=== PATIENT | female | born 1945 | race Caucasian/White ===

== ENCOUNTER → 2017-05-07 | Outpatient (CLI) | payer MEDICARE, OTHER ==
--- NOTE | 2017-05-07 11:39 | RAD ---
EXAM: MAMMO WANDA SCREENING BILATERAL HISTORY: Routine Screening. COMPARISON: 09/19/2015 Standard mammographic views are obtained of the bilateral breasts. Additionally three-dimensional tomographic images obtained. This study was interpreted with the benefit of Computerized Aided Detection (CAD). FINDINGS: The breast parenchyma Is heterogenously dense, which could reduce sensitivity of mammography. Breast parenchyma level III.. There is no definite new suspicious spiculated mass or worrisome new cluster of microcalcifications. There are some scattered calcifications again seen. IMPRESSION: No definite new suspicious mass. BI-RADS CATEGORY: 2 BENIGN FINDING RECOMMENDED FOLLOW-UP: 12M 12 MONTH FOLLOW-UP PQRS compliance statement: Patient information was entered into a reminder system with a target due date for the next mammogram. Mammography is a sensitive method for finding small breast cancers, but it does not detect them all and is not a substitute for careful clinical examination. A negative mammogram does not negate a clinically suspicious finding and should not result in delay in biopsying a clinically suspicious abnormality. "Our facility is accredited by the [employer] Mammography Program."
== END | disposition home or self-care (01) ==
LOC: MAMMO 08:27
PROVIDERS: ATTEND Family Medicine
DX: Z12.31 Encounter for screening mammogram for malignant neoplasm of breast (principal)
CPT/HCPCS: 77063; G0202; 77067

== ENCOUNTER → 2018-07-15 | Outpatient (CLI) | payer MEDICARE, OTHER ==
--- NOTE | 2018-07-16 08:40 | RAD ---
DATE: 07/15/2018 EXAM: MAMMO WANDA SCREENING BILATERAL HISTORY: Screening COMPARISON: 05/07/2017, 12 1 213 screening mammographic exams This study was interpreted with the benefit of Computerized Aided Detection (CAD ). Breast Density: SCATTERED The breast parenchyma shows scattered fibroglandular densities. Breast parenchyma level B. FINDINGS: A few punctate benign calcifications are present but are probably normal at the right axillary region. No dominant mass or distortion. Parenchymal distribution is stable. IMPRESSION: BI-RADS CATEGORY: 2 BENIGN FINDING(S) RECOMMENDED FOLLOW-UP: PQRS compliance statement: Patient information was entered into a reminder system with a target due date 1 year for the next mammogram. Mammography is a sensitive method for finding small breast cancers, but it does not detect them all and is not a substitute for careful clinical examination. A negative mammogram does not negate a clinically suspicious finding and should not result in delay in biopsying a clinically suspicious abnormality. "Our facility is accredited by the [employer] Mammography Program." SCOTTIED
== END | disposition home or self-care (01) ==
LOC: MAMMO 10:15
PROVIDERS: ATTEND Family Medicine
DX: Z12.31 Encounter for screening mammogram for malignant neoplasm of breast (principal)
CPT/HCPCS: 77063; 77067

== ENCOUNTER 2018-11-22 03:43 | Emergency (ER) | payer MEDICARE, OTHER ==
[~2018-11-22] VITALS: Ht 165.1 cm; Wt 60.7 kg
--- NOTE | 2018-11-22 03:45 | ED.ADGEN ---
Past History Past Medical History: A-Fib, Other Past Medical History Head Injury- suspect small focus Rt parietal parafalcine hemorrhage- subdural or subarachnoid. Adult General Chief Complaint Chief Complaint ".. I had a couple glasses wine at the tasting.. ..I get dehydrated easily...I have Afib.. and I guess I passed out on the way to bathroom.....".." I am also on Augmentin... for a upper respiratory infection....".." I think I have Afib..all my family had it.." " I heard her fall.. she was out for a little while... 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 Patient thinks she hit the edge at the sink when she became dizzy. Patient has a 8 cm hematoma left posterior scalp with a 4 cm laceration to the skull level. Patient also has contusion of right elbow. Patient presents with A. fib with rapid ventricular response. Patient does move all extremities on request. [place] Coma Scale 15. No obvious focal deficits. Patient only takes aspirin for medications. Patient recently started on Augmentin for an upper respiratory infection. Pt. follows with Dr. Garrett Review of Systems Review of Systems Constitutional: Denies fever or chills [] Eyes: Denies change in visual acuity, redness, or eye pain [] HENT: Denies nasal congestion or sore throat [] Complaints of head injury. Respiratory: Denies cough or shortness of breath [] Cardiovascular: No additional information not addressed in HPI [] GI: Denies abdominal pain, nausea, vomiting, bloody stools or diarrhea [] : Denies dysuria or hematuria [] Musculoskeletal: Denies back pain or joint pain [] Integument: Denies rash or skin lesions [] Neurologic: Denies headache, focal weakness or sensory changes []Complaints of dizzy..and feels like she is in Afib. ( Family Hx.) Endocrine: Denies polyuria or polydipsia [] All other systems were reviewed and found to be within normal limits, except as documented in this note. Family History Family History under tx. for pneumonia Current Medications Current Medications Current Medications Medications (Trade) Dose Ordered Sig/Rosaura Start Time Stop Time Status Last Admin Dose Admin Dextrose 100 ml @ As Directed STK-MED ONCE 11/22/18 04:54 11/22/18 04:55 DC Diltiazem HCl (Cardizem Iv Push) 10 mg 1X ONCE 11/22/18 05:30 11/22/18 05:30 DC Diltiazem HCl (Cardizem) 125 mg STK-MED ONCE 11/22/18 04:54 11/22/18 04:56 DC Diltiazem HCl 125 mg/Dextrose 125 ml @ 5 mls/hr CONT PRN 11/22/18 05:30 11/22/18 05:00 5 MLS/HR Diphenhydramine HCl (Benadryl) 25 mg 1X ONCE 11/22/18 05:30 11/22/18 05:31 DC Diphtheria/ Tetanus/Acell Pertussis (Boostrix) 0.5 ml STK-MED ONCE 11/22/18 04:33 11/22/18 04:35 DC Lidocaine HCl 20 ml 1X ONCE 11/22/18 04:30 11/22/18 04:32 DC 11/22/18 04:30 20 ML Lidocaine/ Epinephrine (Xylocaine 1%-Epi 1:100,000) 20 ml STK-MED ONCE 11/22/18 04:33 11/22/18 04:35 DC Ondansetron HCl (Zofran Odt) 8 mg 1X ONCE 11/22/18 04:15 11/22/18 04:32 DC 11/22/18 04:26 8 MG Ondansetron HCl (Zofran) 8 mg 1X ONCE 11/22/18 04:30 11/22/18 04:32 DC 11/22/18 04:49 8 MG Prochlorperazine Edisylate (Compazine) 5 mg 1X ONCE 11/22/18 05:30 11/22/18 05:31 DC 11/22/18 05:21 5 MG Sodium Chloride 1,000 ml @ 100 mls/hr Q10H 11/22/18 04:30 11/22/18 14:29 11/22/18 06:24 100 MLS/HR Allergies Allergies Allergies Coded Allergies Type Severity Reaction Last Updated Verified No Known Drug Allergies 11/22/18 No Physical Exam Physical Exam Constitutional: Moderately acute distress, non-toxic appearance. [] HENT: Normocephalic, 8 x 8 cm hematoma to posterior scalp with 4 cm laceration, bilateral external ears normal, oropharynx moist, no oral exudates, nose normal. []TMs normal Eyes: PERRLA, EOMI, conjunctiva normal, no discharge. [] Neck: Normal range of motion, mild para cervical muscle tenderness, supple, no stridor. No midline tenderness. Cardiovascular: A. fib with rapid ventricular response on monitor no murmur [] Afib. per monitor. Lungs & Thorax: Bilateral breath sounds equal apexes on auscultation [] Abdomen: Bowel sounds normal, soft, no tenderness, no masses, no pulsatile masses. [] Skin: Warm, dry, no erythema, no rash. Right elbow contusion Back: No tenderness, no CVA tenderness. [] Extremities: Right elbow tenderness, no cyanosis, no clubbing, ROM intact, right elbow edema. [] Neurologic: Alert and oriented X 3, normal motor function, normal sensory function, no focal deficits noted. []DTRs +2 patella and brachial. Silver Miner Blasting equal. Right-hand dominant. Psychologic: Affect anxious, judgement normal, mood normal. [] Current Patient Data Vital Signs Vital Signs Date Time Temp Pulse Resp B/P (MAP) Pulse Ox O2 Delivery O2 Flow Rate FiO2 11/22/18 05:24 67 22 103/62 (76) 99 Room Air 11/22/18 03:45 98.1 Lab Results Laboratory Tests Test 11/22/18 04:20 White Blood Count 6.2 x10^3/uL (4.0-11.0) Red Blood Count 4.85 x10^6/uL (3.50-5.40) Hemoglobin 15.2 g/dL (12.0-15.5) Hematocrit 45.1 % (36.0-47.0) Mean Corpuscular Volume 93 fL (79-100) Mean Corpuscular Hemoglobin 31 pg (25-35) Mean Corpuscular Hemoglobin Concent 34 g/dL (31-37) Red Cell Distribution Width 12.9 % (11.5-14.5) Platelet Count 199 x10^3/uL (140-400) Neutrophils (%) (Auto) 38 % (31-73) Lymphocytes (%) (Auto) 51 % (24-48) H Monocytes (%) (Auto) 8 % (0-9) Eosinophils (%) (Auto) 2 % (0-3) Basophils (%) (Auto) 1 % (0-3) Neutrophils # (Auto) 2.3 x10^3uL (1.8-7.7) Lymphocytes # (Auto) 3.2 x10^3/uL (1.0-4.8) Monocytes # (Auto) 0.5 x10^3/uL (0.0-1.1) Eosinophils # (Auto) 0.1 x10^3/uL (0.0-0.7) Basophils # (Auto) 0.0 x10^3/uL (0.0-0.2) Prothrombin Time 9.9 SEC (9.4-11.4) Prothrombin Time INR 1.0 (0.9-1.1) PTT 21 SEC (23-33) L D-Dimer (Belkys) 7.20 mg/L (0.00-0.50) H Sodium Level 145 mmol/L (136-145) Potassium Level 3.4 mmol/L (3.5-5.1) L Chloride Level 105 mmol/L (98-107) Carbon Dioxide Level 28 mmol/L (21-32) Anion Gap 12 (6-14) Blood Urea Nitrogen 9 mg/dL (7-20) Creatinine 0.9 mg/dL (0.6-1.0) Estimated GFR (Cockcroft-Gault) 61.7 Glucose Level 110 mg/dL (70-99) H Lactic Acid Level 2.4 mmol/L (0.4-2.0) H Calcium Level 9.1 mg/dL (8.5-10.1) Magnesium Level 1.7 mg/dL (1.8-2.4) L Total Bilirubin 0.3 mg/dL (0.2-1.0) Direct Bilirubin 0.1 mg/dL (0.0-0.2) Aspartate Amino Transferase (AST) 23 U/L (15-37) Alanine Aminotransferase (ALT) 30 U/L (14-59) Alkaline Phosphatase 57 U/L (46-116) Creatine Kinase 64 U/L (26-192) Troponin I Quantitative 0.024 ng/mL (0-0.055) OH-Tdx-X-Type Natriuretic Peptide 440 pg/mL (0-124) H Total Protein 7.6 g/dL (6.4-8.2) Albumin 3.7 g/dL (3.4-5.0) Lipase 165 U/L (73-393) Ethyl Alcohol Level < 10 mg/dL (0-10) EKG EKG My interpretation of EKG shows A. fib with rapid ventricular response with ventricular rate 157. Irregular irregular rhythm. There is a ventricular strain pattern. Some nonspecific anterior lateral changes. I interpretation a repeat EKG shows shows a sinus rhythm at 66 bpm. Does occasionally have an atrial premature contraction. There is a short MO intervals. There is some nonspecific ST changes. But no findings of acute STEMI with contralateral changes.. Radiology/Procedures Radiology/Procedures My interpretation of chest x-ray shows hyperexpansion. Does have findings suggestive of chronic obstructive pulmonary disease. No significant infiltrates. Does have a small right urias phrenic angle opacity. No obvious fractures. Some mild DJD joint changes. My interpretation CT of head shows contusion left posterior scalp. Also shows a possible right parietal hemorrhage small, no mass effect subdural versus subarachnoid. See formal report when available. Course & Med Decision Making Course & Med Decision Making Pertinent Labs and Imaging studies reviewed. (See chart for details) Patient is requesting transfer to [facility] where her daughter is a PA for the cardiology group and where she has insurance coverage Discussed presentation, testing and treatment plan with Dr. Aj - Cardiology [facility]- will accept pt. Discussed presentation, testing and tx. plan with Dr. Atkinson- Neurosurgery will Consult on pt. Pt. transfer to [facility] Room 463 Discussed presentation testing and treatment plan with Dr. Garrett. [] Final Impression Final Impression 1. Syncope[] 2. Afib with Rapid Vent. Response 3. HTN 4. Head Injury- Contusion Laceration 4 cm 5. Small Rt. Parietal Parafalcine Hemorrhage- No shift or mass effect- Subdural vs Subarachnoid 6. Rt.Elbow Contusion 7. Elevated D-dimer 7.2 Dragon Disclaimer Dragon Disclaimer This electronic medical record was generated, in whole or in part, using a voice recognition dictation system. Discharge Summary Visit Information Final Diagnosis Problems Medical Problems: (1) Syncope Status: Acute Brief Hospital Course Allergies Allergies Coded Allergies Type Severity Reaction Last Updated Verified No Known Drug Allergies 11/22/18 No Vital Signs Vital Signs Date Time Temp Pulse Resp B/P (MAP) Pulse Ox O2 Delivery O2 Flow Rate FiO2 11/22/18 05:24 67 22 103/62 (76) 99 Room Air 11/22/18 03:45 98.1 Lab Results Laboratory Tests Test 11/22/18 04:20 White Blood Count 6.2 x10^3/uL (4.0-11.0) Red Blood Count 4.85 x10^6/uL (3.50-5.40) Hemoglobin 15.2 g/dL (12.0-15.5) Hematocrit 45.1 % (36.0-47.0) Mean Corpuscular Volume 93 fL (79-100) Mean Corpuscular Hemoglobin 31 pg (25-35) Mean Corpuscular Hemoglobin Concent 34 g/dL (31-37) Red Cell Distribution Width 12.9 % (11.5-14.5) Platelet Count 199 x10^3/uL (140-400) Neutrophils (%) (Auto) 38 % (31-73) Lymphocytes (%) (Auto) 51 % (24-48) Monocytes (%) (Auto) 8 % (0-9) Eosinophils (%) (Auto) 2 % (0-3) Basophils (%) (Auto) 1 % (0-3) Neutrophils # (Auto) 2.3 x10^3uL (1.8-7.7) Lymphocytes # (Auto) 3.2 x10^3/uL (1.0-4.8) Monocytes # (Auto) 0.5 x10^3/uL (0.0-1.1) Eosinophils # (Auto) 0.1 x10^3/uL (0.0-0.7) Basophils # (Auto) 0.0 x10^3/uL (0.0-0.2) Prothrombin Time 9.9 SEC (9.4-11.4) Prothromb Time International Ratio 1.0 (0.9-1.1) Activated Partial Thromboplast Time 21 SEC (23-33) D-Dimer (Belkys) 7.20 mg/L (0.00-0.50) Sodium Level 145 mmol/L (136-145) Potassium Level 3.4 mmol/L (3.5-5.1) Chloride Level 105 mmol/L (98-107) Carbon Dioxide Level 28 mmol/L (21-32) Anion Gap 12 (6-14) Blood Urea Nitrogen 9 mg/dL (7-20) Creatinine 0.9 mg/dL (0.6-1.0) Estimated GFR (Cockcroft-Gault) 61.7 Glucose Level 110 mg/dL (70-99) Lactic Acid Level 2.4 mmol/L (0.4-2.0) Calcium Level 9.1 mg/dL (8.5-10.1) Magnesium Level 1.7 mg/dL (1.8-2.4) Total Bilirubin 0.3 mg/dL (0.2-1.0) Direct Bilirubin 0.1 mg/dL (0.0-0.2) Aspartate Amino Transf (AST/SGOT) 23 U/L (15-37) Alanine Aminotransferase (ALT/SGPT) 30 U/L (14-59) Alkaline Phosphatase 57 U/L (46-116) Creatine Kinase 64 U/L (26-192) Troponin I Quantitative 0.024 ng/mL (0-0.055) FS-Icc-I-Type Natriuretic Peptide 440 pg/mL (0-124) Total Protein 7.6 g/dL (6.4-8.2) Albumin 3.7 g/dL (3.4-5.0) Lipase 165 U/L (73-393) Ethyl Alcohol Level < 10 mg/dL (0-10) Brief Hospital Course Ms. Rodriguez is a 73 old female who presented with Afib.with rapid ventricle response, syncope, head injury and possible subdural/subarachnoid response. Transfer to [facility]- Dr. De Paz and - neurosurgery. Discharge Information Condition at Discharge: Improved, Stable Disposition/Orders: D/C to Another Facility Dischare Medications Current Medications Sodium Chloride 1,000 ml @ 100 mls/hr Q10H IV Last administered on 11/22/18at 06 :24; Admin Dose 100 MLS/HR; Start 11/22/18 at 04:30; Stop 11/22/18 at 14:29 Ondansetron HCl (Zofran) 8 mg 1X ONCE IV Last administered on 11/22/18at 04:49; Admin Dose 8 MG; Start 11/22/18 at 04:30; Stop 11/22/18 at 04:32; Status DC Lidocaine HCl 20 ml 1X ONCE IJ Last administered on 11/22/18at 04:30; Admin Dose 20 ML; Start 11/22/18 at 04:30; Stop 11/22/18 at 04:32; Status DC Ondansetron HCl (Zofran Odt) 4 mg STK-MED ONCE .ROUTE ; Start 11/22/18 at 04:04; Stop 11/22/18 at 04:06; Status DC Ondansetron HCl (Zofran Odt) 8 mg 1X ONCE PO Last administered on 11/22/18at 04: 26; Admin Dose 8 MG; Start 11/22/18 at 04:15; Stop 11/22/18 at 04:32; Status DC Diltiazem HCl (Cardizem Iv Push) 10 mg 1X ONCE IVP Last administered on at 04:30; Admin Dose 10 MG; Start 11/22/18 at 04:15; Stop 11/22/18 at 04:32; Status DC Lidocaine/ Epinephrine (Xylocaine 1%-Epi 1:100,000) 20 ml STK-MED ONCE .ROUTE ; Start 11/22/18 at 04:33; Stop 11/22/18 at 04:35; Status DC Diphtheria/ Tetanus/Acell Pertussis (Boostrix) 0.5 ml ONCE ONCE VAX IM Last administered on 11/22/18at 05:17; Admin Dose 0.5 ML; Start 11/22/18 at 05:00; Stop 11/22/18 at 05:01; Status DC Diphtheria/ Tetanus/Acell Pertussis (Boostrix) 0.5 ml STK-MED ONCE VAX IM ; Start 11/22/18 at 04:33; Stop 11/22/18 at 04:35; Status DC Dextrose 100 ml @ As Directed STK-MED ONCE IV ; Start 11/22/18 at 04:54; Stop at 04:55; Status DC Diltiazem HCl (Cardizem) 125 mg STK-MED ONCE IV ; Start 11/22/18 at 04:54; Stop 11/22/18 at 04:56; Status DC Diphenhydramine HCl (Benadryl) 25 mg 1X ONCE IVP ; Start 11/22/18 at 05:30; Stop 11/22/18 at 05:31; Status DC Prochlorperazine Edisylate (Compazine) 10 mg 1X ONCE IM ; Start 11/22/18 at 05: 30; Stop 11/22/18 at 05:30; Status DC Diltiazem HCl (Cardizem Iv Push) 10 mg 1X ONCE IVP ; Start 11/22/18 at 05:30; Stop 11/22/18 at 05:30; Status DC Prochlorperazine Edisylate (Compazine) 5 mg 1X ONCE IV Last administered on 11/22/18at 05:21; Admin Dose 5 MG; Start 11/22/18 at 05:30; Stop 11/22/18 at 05:31; Status DC Diltiazem HCl 125 mg/Dextrose 125 ml @ 5 mls/hr CONT PRN IV SEE I/O RECORD Last administered on 11/22/18at 05:00; Admin Dose 5 MLS/HR; Start 11/22/18 at 05:30 Nimisha Disclaimer This chart was dictated in whole or in part using Voice Recognition software in a busy, high-work load, and often noisy Emergency Department environment. It may contain unintended and wholly unrecognized errors or omissions. LA RUSSELL MD Nov 22, 2018 03:45
[2018-11-22] MEDS ORDERED: ONDANSETRON ODT 4 MG TAB.RAPDIS ONE (04:04)
[2018-11-22] MEDS ORDERED: ONDANSETRON ODT 4 MG TAB.RAPDIS PO ONE (04:15)
[2018-11-22] MEDS ORDERED: dilTIAZem 25 MG/5 ML VIAL IVP ONE ×2 (04:15→05:30)
[2018-11-22] MEDS ORDERED: LIDOCAINE 2% 20 ML VIAL. IJ ONE (04:30)
[2018-11-22] MEDS ORDERED: ONDANSETRON PF 4 MG/2 ML VIAL. IV ONE (04:30)
[2018-11-22] MEDS: IV NORMAL SALINE 1,000ML 1,000 ML IV SCH ×2 (04:32→06:24)
[2018-11-22] MEDS ORDERED: LIDOCAINE 1%/EPI 1:100,000 20 ML VIAL. ONE (04:33)
[2018-11-22] MEDS ORDERED: DIPHTH,PERTUSS(ACELL),TET TOX 0.5 ML DISP.SYRIN. VAX IM ONE ×2 (04:33→05:00)
[2018-11-22] MEDS ORDERED: IV DEXTROSE 5% 100 ML IV ONE (04:54)
[2018-11-22 05:07] LABS: BASO % 1 % (0-3); EOS # 0.1 x10^3/uL (0.0-0.7); EOS % 2 % (0-3); HEMATOCRIT 45.1 % (36.0-47.0); HEMOGLOBIN 15.2 g/dL (12.0-15.5); LYMPH # 3.2 x10^3/uL (1.0-4.8); LYMPH % 51 % (24-48); MEAN CORPUSCULAR HEMOGLOBIN 31 pg (25-35); MEAN CORPUSCULAR HGB CONC 34 g/dL (31-37); MEAN CORPUSCULAR VOLUME 93 fL (79-100); MONO # 0.5 x10^3/uL (0.0-1.1); MONO % 8 % (0-9); NEUT # 2.3 x10^3uL (1.8-7.7); NEUT % 38 % (31-73); PLATELET COUNT 199 x10^3/uL (140-400); RED BLOOD COUNT 4.85 x10^6/uL (3.50-5.40); RED CELL DISTRIBUTION WIDTH 12.9 % (11.5-14.5); WHITE BLOOD COUNT 6.2 x10^3/uL (4.0-11.0)
--- NOTE | 2018-11-22 05:23 | RAD ---
EXAM: 1. CT HEAD WITHOUT CONTRAST. 2. CT CERVICAL SPINE WITHOUT CONTRAST. HISTORY: Syncope, head injury, vomiting. TECHNIQUE: Computed tomography of the head and cervical spine was performed without intravenous contrast. COMPARISON: None. FINDINGS: There is a small focus of hemorrhage in the right parietal parafalcine distribution. This may be subdural or subarachnoid. There is no significant mass effect. Linton-white differentiation is preserved. The ventricles are normal in size and position. The visualized paranasal sinuses appear clear. The orbits are unremarkable. The temporal bones are unremarkable. The calvarium reveals no suspicious lesions. There is a left parietal scalp laceration with a small associated scalp hematoma. Alignment is maintained. The craniocervical junction is unremarkable. No fractures are identified. Degenerative disc disease is moderate at C5-6 and mild at C4-5. There is no prevertebral soft tissue swelling. A hypoattenuating nodule in the right thyroid lobe measures 1.7 cm. At C2-3, there is a small posterior disc bulge. There is no significant stenosis. At C3-4, there is no significant stenosis. At C4-5, there is a small posterior disc bulge. Facet osteoarthritis is mild bilaterally. Uncovertebral osteoarthritis is mild bilaterally. Neural foraminal stenosis is mild bilaterally. At C5-6, there is a moderate posterior disc-osteophyte complex. Uncovertebral osteoarthritis is moderate to severe bilaterally. Neural foraminal stenosis is mild on the left and moderate on the right. At C6-7, there is a small to moderate posterior disc bulge. Right facet osteoarthritis is moderate to severe. Neural foraminal stenosis is mild on the left and moderate on the right. IMPRESSION: 1. A small focus of right parietal parafalcine hemorrhage may be subdural or subarachnoid. No significant mass effect. 2. No cervical fracture or malalignment. These findings were called to Dr. Craft by Edward Coates on 11/22/2018 at 5:00 AM. *One or more of the following individualized dose reduction techniques were utilized for this examination: 1. Automated exposure control. 2. Adjustment of the mA and/or kV according to patient size. 3. Use of iterative reconstruction technique. Electronically signed by: Terell Coates MD (11/22/2018 5:18 AM) [facility]
--- NOTE | 2018-11-22 05:24 | RAD ---
EXAM: CHEST 1 VIEW. HISTORY: Syncope, fall, atrial fibrillation. COMPARISON: None. FINDINGS: A frontal view of the chest is obtained. Hyperinflation suggests chronic obstructive pulmonary disease. There are no confluent infiltrates. A triangular opacity in the right cardiophrenic angle is likely an epicardial fat pad. There is no pneumothorax or pleural effusion. The heart is not enlarged. IMPRESSION: 1. Hyperinflation suggests chronic obstructive pulmonary disease. No confluent infiltrates. 2. A triangular opacity in the right cardiophrenic angle is likely a fat pad. Correlate with remote chest radiographs to confirm long-term stability. Electronically signed by: Terell Coates MD (11/22/2018 5:20 AM) [facility]
[2018-11-22 05:26] LABS: ALBUMIN 3.7 g/dL (3.4-5.0); CALCIUM 9.1 mg/dL (8.5-10.1); CREATININE 0.9 mg/dL (0.6-1.0); DIRECT BILIRUBIN 0.1 mg/dL (0.0-0.2); GFR 61.7; MAGNESIUM 1.7 mg/dL (1.8-2.4); POTASSIUM 3.4 mmol/L (3.5-5.1); TOTAL BILIRUBIN 0.3 mg/dL (0.2-1.0); TOTAL PROTEIN 7.6 g/dL (6.4-8.2)
[2018-11-22] MEDS ORDERED: dilTIAZem VIAL 125 MG in IV DEXTROSE 5% 100 ML IV PRN (05:30)
[2018-11-22] MEDS ORDERED: diphenhydrAMINE 50 MG/ML VIAL IVP ONE (05:30)
[2018-11-22] MEDS ORDERED: PROCHLORPERAZINE 10 MG/2 ML VIAL. IV ONE (05:30)
[2018-11-22] MEDS ORDERED: PROCHLORPERAZINE 10 MG/2 ML VIAL. IM ONE (05:30)
[2018-11-22 06:09] VITALS: BP 105/43
--- NOTE | 2018-11-22 09:08 | EKG ---
[address] [address] Test Date: 2018-11-22 Test Time: 05:50:01 Pat Name: BRADLEY COLÓN Department: Room: Gender: F Key Punch Operator: RUTHANN : 1945 Requested By: LA RUSSELL Order Number: [id number] Reading MD: Ford Reardon MD Measurements Intervals [place] Rate: 66 P: 90 WV: 118 QRS: 70 QRSD: 86 T: -130 QT: 416 QTc: 438 Interpretive Statements SINUS RHYTHM ATRIAL PREMATURE COMPLEX(ES) SHORT WV INTERVAL Electronically Signed On 11-23-2018 10:16:54 DIRECTOR OF SUPPLY CHAIN by Ford Reardon MD
--- NOTE | 2018-11-22 09:09 | EKG ---
[address] [address] Test Date: 2018-11-22 Test Time: 04:09:33 Pat Name: BRADLEY COLÓN Department: Room: Gender: F Crm Solution Architect: RUTHANN : 1945 Requested By: LA RUSSELL Order Number: [id number] Reading MD: Ford Reardon MD Measurements Intervals [place] Rate: 157 P: [place]: QRS: 69 QRSD: 80 T: 52 QT: 286 QTc: 469 Interpretive Statements ATRIAL FIBRILLATION WITH RVR NON-SPECIFIC ST/T CHANGES Electronically Signed On 12-02-2018 9:42:36 CUSTOMS APPRAISER by Ford Reardon MD
== END 2018-11-22 06:20 | disposition short-term general hospital (02) ==
LOC: ER 03:43
DX: S01.01XA Laceration without foreign body of scalp, initial encounter (principal); S06.300A Unspecified focal traumatic brain injury without loss of consciousness, initial encounter; S50.01XA Contusion of right elbow, initial encounter; R55 Syncope and collapse; I48.2 Chronic atrial fibrillation; I10 Essential (primary) hypertension; R79.1 Abnormal coagulation profile; I48.91 Unspecified atrial fibrillation; W18.09XA Striking against other object with subsequent fall, initial encounter; Y93.89 Activity, other specified; Y92.091 Bathroom in other non-institutional residence as the place of occurrence of the external cause; Y99.8 Other external cause status
CPT/HCPCS: 12002; 36415; 70450; 71045; 72125; 80048; 80076; 82550; 83605; 83690; 83735; 83880; 84443; 84484; 85025; 85379; 85610; 85730; 87040; 90471; 90715; 93005; 96365; 96375; 96376; 99285; G0480; J0780; J2405; J3490; Q0162; J2001; J7030